=== PATIENT | male | born 1960 ===

== ENCOUNTER 2018-10-26 22:51 | Emergency (ER) | payer OTHER ==
[2018-10-26 23:11] VITALS: RESP 20; TEMP 98.3
--- NOTE | 2018-10-26 23:45 | C.PDOC ---
History Of Present Illness 58 year old male presents to the ED for evaluation of new onset abdominal pain which began prior to arrival. Patient reports onset was around two hours after eating a chicken empanada. Patient states pain is dull and generalized. He denies fever, nausea, vomiting, diarrhea. Patient has negative past surgical history. Denies history of similar symptoms in the past. NEW ONSET ABD PAIN [employer]. ONSET 2 HRS AFTER EATING CHICKEN EMPANADA. DULL, GENERALIZED NO FEVER, NVD. PSH NEG. DENIES HO PRIOR SIM SX EXAM MILD DIST HEENT ANICTERIC MMM ABD SOFT NT ND NO R/G REMAINDER NEG Time Seen by Provider: 10/26/18 23:26 Chief Complaint (Nursing): Abdominal Pain History Per: Patient History/Exam Limitations: no limitations Onset/Duration Of Symptoms: Hrs (2) Current Symptoms Are (Timing): Still Present Location Of Pain/Discomfort: Diffuse Quality Of Discomfort: Dull, "Pain" Associated Symptoms: denies: Fever, Nausea, Vomiting, Diarrhea Additional History Per: Patient Past Medical History Reviewed: Historical Data, Nursing Documentation, Vital Signs Vital Signs: Last Vital Signs Temp 98.3 F 10/26/18 23:04 Pulse 60 10/26/18 23:04 Resp 20 10/26/18 23:04 BP 154/85 H 10/26/18 23:04 Pulse Ox 100 10/26/18 23:04 - Medical History PMH: No Chronic Diseases Surgical History: No Surg Hx Family History: States: Unknown Family Hx - Social History Hx Alcohol Use: No Hx Substance Use: No - Immunization History Hx Tetanus Toxoid Vaccination: No Hx Influenza Vaccination: No Hx Pneumococcal Vaccination: No Review Of Systems Constitutional: Negative for: Fever Gastrointestinal: Positive for: Abdominal Pain. Negative for: Nausea, Vomiting, Diarrhea Physical Exam - Physical Exam Appears: Non-toxic, Other (in mild distress ) Skin: Normal Color, Warm, Dry Head: Atraumatic, Normacephalic Eye(s): bilateral: Normal Inspection, Other (anicteric ) Ear(s): Bilateral: Normal Nose: Normal, No Discharge Oral Mucosa: Moist Throat: Normal, No Erythema, No Exudate Neck: Supple Chest: Symmetrical, No Deformity, No Tenderness Cardiovascular: Rhythm Regular, No Murmur Respiratory: Normal Breath Sounds, No Rales, No Rhonchi, No Wheezing Gastrointestinal/Abdominal: Soft, No Tenderness, No Distention, No Guarding, No Rebound Extremity: Normal ROM, Capillary Refill (less than 2 seconds ) Neurological/Psych: Oriented x3, Normal Speech, Normal Cognition ED Course And Treatment - Laboratory Results Result Diagrams: 10/26/18 23:53 10/26/18 23:53 ECG: Interpreted By Me ECG Rhythm: Sinus Bradycardia Rate From EC O2 Sat by Pulse Oximetry: 100 (on RA) Pulse Ox Interpretation: Normal Progress Note: Bloodwork, urinalysis, EKG ordered and reviewed. Bentyl IM and Morphine IVP given. Progress - Re-Evaluation Re-evaluation Note: 10/27/18 00:52 ASYMPT PAIN RESOLVED. PT WISHES DC HOME. ADVISED RETURN IF WORSENING SYMPTOMS - Data Reviewed Data Reviewed: Lab, EKG, Old records Disposition Counseled Patient/Family Regarding: Studies Performed, Diagnosis, Need For Followup, Rx Given - Disposition Referrals: [facility] [Outside] [facility] [Outside] Disposition: HOME/ ROUTINE Disposition Time: 00:52 Condition: IMPROVED Prescriptions: Docusate Sodium [Colace] 100 mg PO BID PRN #30 capsule PRN Reason: Constipation Famotidine [Pepcid AC] 10 mg PO QN #30 tablet Metoclopramide [Reglan] 1 tab PO TID PRN #25 tab PRN Reason: Nausea/Vomiting Instructions: Acute Abdomen (Belly Pain), Adult (DC) Forms: [employer] (Bahamian) Print Language: TAJIK - Clinical Impression Clinical Impression: Abdominal pain - Scribe Statement The provider has reviewed the documentation as recorded by the Scribe (Teresa Schneider) Provider Attestation: All medical record entries made by the Scribe were at my direction and personally dictated by me. I have reviewed the chart and agree that the record accurately reflects my personal performance of the history, physical exam, medical decision making, and the department course for this patient. I have also personally directed, reviewed, and agree with the discharge instructions and disposition.
[2018-10-26 23:56] LABS: BASO % 0.6 % (0.0-2.0); EOS # 0.3 K/uL (0.0-0.7); EOS % 8.7 % (0.0-4.0); HEMOGLOBIN 14.6 g/dL (12.0-18.0); LYMPH % 28.7 % (20.0-40.0); MEAN CELL VOLUME 90.5 fL (80.0-94.0); MEAN CORPUSCULAR HEMOGLOBIN 30.5 pg (27.0-31.0); MEAN CORPUSCULAR HGB CONC 33.7 g/dL (33.0-37.0); MEAN PLATELET VOLUME 7.6 fL (7.2-11.7); MONO # 0.3 K/uL (0.0-0.8); MONO % 8.9 % (0.0-10.0); NEUT # 1.8 K/uL (1.8-7.0); NEUT % 53.1 % (50.0-75.0); RBC 4.79 Mil/uL (4.40-5.90); WHITE BLOOD COUNT 3.4 K/uL (4.8-10.8)
[2018-10-27] MEDS ORDERED: Morphine 4 MG/ML VIAL ONE
[2018-10-27 00:08] LABS: ALB/GLOB RATIO 1.6 (1.0-2.1); ALBUMIN 4.6 g/dL (3.5-5.0); ALT/SGPT 37 U/L (21-72); AST/SGOT 25 U/L (17-59); BLOOD UREA NITROGEN 18 mg/dL (9-20); GFR NON-AFRICAN AMERICAN > 60; LIPASE 33 U/L (23-300)
[2018-10-27 00:45] LABS: URINE BACTERIA RARE (<OCC); URINE BILIRUBIN NEGATIVE (NEGATIVE); URINE BLOOD 1+ (NEGATIVE); URINE CLARITY Clear (Clear); URINE COLOR Yellow (YELLOW); URINE GLUCOSE (UA) NORMAL (Normal); URINE LEUKOCYTE ESTERASE NEG Leu/uL (Negative); URINE PROTEIN NEGATIVE (NEGATIVE); URINE UROBILINOGEN NORMAL mg/dL (0.2-1.0)
[2018-10-27 01:18] VITALS: BP 128/70; PULSE 58
[2018-10-27 03:53] VITALS: O2SAT 100
--- NOTE | 2018-10-29 15:56 | CARD ---
APPROVED REPORT Date of service: 10/27/2018 EKG Measurement Heart [id number] <Conclusion> Sinus bradycardia Minimal voltage criteria for LVH, may be normal variant ST elevation, consider early repolarization, pericarditis, or injury Abnormal ECG
== END 2018-10-27 01:17 | disposition home or self-care (01) ==
LOC: C.ER 22:51
DX: R10.9 Unspecified abdominal pain (principal)
CPT/HCPCS: 80053; 81001; 83690; 84484; 85025; 93005; 96372; 96374; 99285; J0500; J2270